=== PATIENT | female | born 1990 | race Caucasian/White ===

== ENCOUNTER 2022-04-13 21:17 | Emergency (ER) | payer BC, MEDICAID ==
[2022-04-13] MEDS ORDERED: fentaNYL 100 MCG/2 ML SDV IM ONE (21:33)
[2022-04-13] MEDS ORDERED: Sodium Chloride 0.9% 10 ML Syringe FLUSH PRN (21:49)
[2022-04-13] MEDS ORDERED: fentaNYL 100 MCG/2 ML SDV IVPUSH ONE (21:49)
[2022-04-13] MEDS ORDERED: Ondansetron 4 MG/2 ML SDV IVPUSH ONE (21:49)
== END 2022-04-14 | disposition home or self-care (01) ==
LOC: JP.ED 21:17
DX: S09.90XA Unspecified injury of head, initial encounter (principal); Z88.1 Allergy status to other antibiotic agents; Y04.0XXA Assault by unarmed brawl or fight, initial encounter
CPT/HCPCS: 70450; 70486; 72125; 76377; 96374; 96375; 99283; 99284-25; J2405; J3010; J3490

== ENCOUNTER 2022-09-19 01:38 | Emergency (ER) | payer BC, MEDICAID ==
[2022-09-19 04:09] LABS: BASOPHILS ABSOLUTE AUTO 0.07 K/uL (0.00-0.10); BASOPHILS PERCENT AUTO 0.7 % (0.1-1.3); HEMATOCRIT 38.8 % (34.3-46.0); HEMOGLOBIN 13.4 g/dL (11.2-15.5); IMMATURE GRAN ABSOLUTE AUTO 0.03 K/uL (0.00-0.23); IMMATURE GRAN PERCENT AUTO 0.3 % (0.0-0.7); LYMPHOCYTES ABSOLUTE AUTO 2.37 K/uL (0.8-3.3); LYMPHOCYTES PERCENT AUTO 22.6 % (11.4-47.7); MEAN CORPUSCULAR HEMOGLOBIN 30.5 pg (31.6-35.5); MEAN CORPUSCULAR HGB CONC 34.5 g/dL (31.6-35.5); MEAN CORPUSCULAR VOLUME 88.2 fL (81.4-99.0); MONOCYTES ABSOLUTE AUTO 0.74 K/uL (0.20-0.90); MONOCYTES PERCENT AUTO 7.1 % (3.3-12.6); NEUTROPHILS ABSOLUTE AUTO 7.28 K/uL (1.0-7.6); NEUTROPHILS PERCENT AUTO 69.3 % (40.0-78.1); PLATELET COUNT,PLT 201 K/uL (130-375); WHITE BLOOD CELL COUNT,WBC 10.5 K/uL (3.2-11.0)
[2022-09-19 04:20] LABS: ANION GAP 9.2 mmol/L (5.0-14.0); CALCIUM 8.7 mg/dL (8.5-10.1); CREATININE 0.7 mg/dL (0.6-1.0); EST CRCL DRUG DOSING (CG) 101.9 mL/min; POTASSIUM,K 3.7 mmol/L (3.6-5.2)
== END 2022-09-19 05:03 | disposition home or self-care (01) ==
LOC: JP.ED 01:38
DX: S61.051A Open bite of right thumb without damage to nail, initial encounter (principal); S61.252A Open bite of right middle finger without damage to nail, initial encounter; M25.562 Pain in left knee; W54.0XXA Bitten by dog, initial encounter; E03.9 Hypothyroidism, unspecified; J45.909 Unspecified asthma, uncomplicated; Z79.899 Other long term (current) drug therapy; Z88.1 Allergy status to other antibiotic agents
CPT/HCPCS: 36415; 73562-26-LT; 73562-LT; 80048; 85025; 99283

== ENCOUNTER 2024-01-28 17:58 | Emergency (ER) | payer MEDICAID ==
[2024-01-28 19:06] LABS: HEMATOCRIT 41.3 % (34.3-46.0); HEMOGLOBIN 14.7 g/dL (11.2-15.5); MEAN CORPUSCULAR HEMOGLOBIN 31.1 pg (31.6-35.5); MEAN CORPUSCULAR HGB CONC 35.6 g/dL (31.6-35.5); MEAN CORPUSCULAR VOLUME 87.3 fL (81.4-99.0); RED BLOOD CELL COUNT 4.73 M/uL (3.77-5.24); WHITE BLOOD CELL COUNT,WBC 4.5 K/uL (3.2-11.0)
[2024-01-28] MEDS: Sodium Chloride 0.9% 1,000 ML IV SCH (19:26)
[2024-01-28] MEDS: Ondansetron 4 MG/2 ML SDV IVPUSH ONE (19:27)
[2024-01-28 19:29] LABS: ALANINE AMINOTRANSFERASE,ALT 24 U/L (12-78); ALBUMIN 3.5 g/dL (3.4-5.0); ALKALINE PHOSPHATASE 69 U/L (46-116); ASPARTATE AMNIOTRANSFERASE,AST 16 U/L (15-37); BILIRUBIN TOTAL 0.2 mg/dL (0.2-1.0); BLOOD UREA NITROGEN,BUN 11 mg/dL (7-18); CALCIUM 8.6 mg/dL (8.5-10.1); CARBON DIOXIDE,CO2 24 mmol/L (21-32); CHLORIDE,CL 105 mmol/L (100-108); CREATININE 0.8 mg/dL (0.6-1.0); EST CRCL DRUG DOSING (CG) 87.48 mL/min; ESTIMATED GFR 98 mL/min (>60); GLUCOSE RANDOM 97 mg/dL (74-106); POTASSIUM,K 3.6 mmol/L (3.6-5.2); PROTEIN TOTAL,TP 7.1 g/dL (6.4-8.2); SODIUM,NA 139 mmol/L (140-148)
[2024-01-28 19:30] LABS: ANION GAP 13.6 mmol/L (5.0-14.0)
[2024-01-28] MEDS: Ketorolac 30 MG/ML SDV IVPUSH ONE (19:47)
[2024-01-28] MEDS: Prochlorperazine 10 MG/2 ML SDV IVPUSH ONE (20:50)
[2024-01-28] MEDS: Sodium Chloride 0.9% 60 ML IV SCH (21:12)
[2024-01-28] MEDS: Iopamidol 612 MG/ML 100 ML Bottle IV SCH (21:12)
[2024-01-28] MEDS: Sodium Chloride 0.9% 10 ML Syringe FLUSH PRN (21:12)
== END 2024-01-28 22:32 | disposition home or self-care (01) ==
LOC: JP.ED 17:58
DX: K52.9 Noninfective gastroenteritis and colitis, unspecified (principal); J45.909 Unspecified asthma, uncomplicated; E03.9 Hypothyroidism, unspecified; Z88.1 Allergy status to other antibiotic agents; Z79.51 Long term (current) use of inhaled steroids; Z79.890 Hormone replacement therapy; Z79.899 Other long term (current) drug therapy
CPT/HCPCS: 36415; 74177; 80053; 85027; 96361; 96374; 96375; 99284; J0780; J1885; J2405; J3490; J7030; Q9967